=== PATIENT | female | born 1935 | race Asian ===

== ENCOUNTER → 2016-11-16 | Outpatient (CLI) | payer OTHER ==
[~2016-11-16] MED LIST: ASPI-556 PO; ATOR20TA86 PO; CLON.1 PO; LEVO5TAB13 PO; OLME1TAB8 PO; RALO60 PO; SITA25 PO; VITAD1000 PO
== END | disposition home or self-care (01) ==
LOC: RADPV 08:49
PROVIDERS: ATTEND Internal Medicine
DX: I51.7 Cardiomegaly (principal); I70.0 Atherosclerosis of aorta
CPT/HCPCS: 71020